=== PATIENT | female | born 1965 | race Caucasian/White ===

== ENCOUNTER 2019-10-04 00:52 | Emergency (ER) | payer BC ==
[~2019-10-04] VITALS: Ht 99.1 cm; Wt 77.1 kg
[2019-10-04 01:07] VITALS: Ht 99.1 cm; Wt 77.1 kg
[2019-10-04 03:50] VITALS: BP 103/64
== END 2019-10-04 03:50 | disposition home or self-care (01) ==
LOC: ED 00:52
DX: T78.40XA Allergy, unspecified, initial encounter (principal); T78.3XXA Angioneurotic edema, initial encounter; X58.XXXA Exposure to other specified factors, initial encounter
CPT/HCPCS: J2930; J3490